=== PATIENT | female | born 1960 | race Caucasian/White ===

== ENCOUNTER 2020-01-31 07:34 | Outpatient (CLI) | payer OTHER, SELFPAY ==
--- NOTE | ~2020-01-31 | MM_ITS ---
EXAMINATION: MM screening roney BI [facility] HISTORY: Screening mammogram TECHNIQUE: Craniocaudal and mediolateral oblique 3-D tomosynthesis images were obtained and synthetic 2-D images were generated. CAD analysis was submitted and interpreted. COMPARISON: Comparison to multiple prior studies sequentially, with oldest reviewed study dated 12/2015. BREAST PARENCHYMAL COMPOSITION: There are scattered areas of fibroglandular density. FINDINGS: There are developing asymmetries in the subareolar location of the left breast. The right b reast is stable without evidence for malignancy. IMPRESSION: 1. Developing left breast asymmetries. 2. Additional mammographic views and possible breast ultrasound are recommended. BI-RADS Category 0: Incomplete: Needs additional imaging evaluation. Reviewed, dictated and finalized at location A. IMPRESSION: 1. Developing left breast asymmetries. 2. Additional mammographic views and possible breast ultrasound are recommended . BI-RADS Category 0: Incomplete: Needs additional imaging evaluation.
== END 2020-01-31 07:35 | disposition home or self-care (01) ==
PROVIDERS: PCP Physician Assistant; Visit Provider Obstetrics & Gynecology
DX: Z12.31 Encounter for screening mammogram for malignant neoplasm of breast (principal); R92.8 Other abnormal and inconclusive findings on diagnostic imaging of breast
CPT/HCPCS: 77063; 77067

== ENCOUNTER 2020-03-19 11:52 | Outpatient (CLI) | payer OTHER, SELFPAY ==
--- NOTE | ~2020-03-19 | MMUS_ITS ---
EXAMINATION: MM diagnostic mammo unilat LT, US breast LT complete HISTORY: Follow-up left breast asymmetry TECHNIQUE: Additional 3-D tomosynthesis images of the left breast were performed and synthetic 2-D im ages were generated. CAD analysis was submitted and interpreted. High resolution left breast ultrasou nd was performed. COMPARISON: Comparison to multiple prior studies sequentially, with oldest reviewed study dated 12/09. BREAST PARENCHYMAL COMPOSITION: The breasts are heterogenously dense, which may obscure small masses FINDINGS: MAMMOGRAPHIC FINDINGS: . There is a circumscribed mass in the upper central aspect of the left breast anteriorly measuring a pproximately 7 mm. No suspicious calcifications or architectural distortion. ULTRASOUND: At 1:00, 3 cm from the nipple, there is a 8 mm cyst. At 10:00, 1 cm from the nipple, there is a 9 mm cyst. No suspicious masses to suggest malignancy. IMPRESSION: 1. No evidence for malignancy in the left breast. Benign findings. 2. Routine yearly screening mammogram and regular clinical breast examination are recommended. BI-RADS Category 2: Benign finding(s). Reviewed, dictated and finalized at location A. IMPRESSION: 1. No evidence for malignancy in the left breast. Benign findings. 2. Routine yearly screening mammogram and regular clinical breast examination a re recommended. BI-RADS Category 2: Benign finding(s).
== END 2020-03-19 11:53 | disposition home or self-care (01) ==
LOC: ANHIMG 11:53
PROVIDERS: PCP Physician Assistant; Visit Provider Obstetrics & Gynecology
DX: N64.59 Other signs and symptoms in breast (principal)
CPT/HCPCS: 76641; 77065

== ENCOUNTER 2020-04-21 06:41 | Outpatient (CLI) | payer OTHER, SELFPAY ==
[2020-04-21 08:05] LABS: Basophils Percent Auto 0.5 % (0.2-1.2); Eosinophils Absolute Auto 0.2 K/mm3 (0-0.3); Eosinophils Percent Auto 2.4 % (0-4.4); Hematocrit 39.9 % (37.0-47.0); Hemoglobin 13.3 g/dL (12.0-15.0); Immature Granulocyte Absolute 0.05 K/mm3 (0.00-0.031); Immature Granulocyte Percent A 0.7 % (0-0.5); Lymphocytes Absolute Auto 2.28 K/mm3 (0.9-3.2); Mean Corpuscular HGB Conc 33.3 g/dl (32-36); Mean Corpuscular Hemoglobin 29.7 pg (26-34); Mean Corpuscular Volume 89.1 fl (80-100); Mean Platelet Volume 10.1 fl (7.4-10.4); Monocytes Absolute Auto 0.5 K/mm3 (0.1-0.6); Monocytes Percent Auto 6.9 % (2.6-8.5); Neutrophils Absolute Auto 4.3 K/mm3 (1.3-6.7); Neutrophils Percent Auto 58.5 % (45.5-73.1); Platelet Count Result 277 k/mm3 (150-375); Red Blood Count 4.48 M/mm3 (4.2-5.4); Red Cell Distribution Width 11.8 % (11.5-14.5); White Blood Count 7.4 K/mm3 (4.5-10.0)
[2020-04-21 08:16] LABS: Add Urine Microscopic? YES; Appearance Urine Clear (Clear); Bilirubin Urine Negative (Negative); Blood Urine 1+ (Negative); Color Urine Yellow (Yellow); Glucose Urine UA Negative (Negative); Ketones Urine Negative (Negative); Leukocyte Esterase Ur Negative LEU/UL (Negative); Mucus Urine Rare /lpf; Nitrate Urine Negative (Negative); Protein Urine Negative (Negative); Specific Grav Ur 1.018 (1.001-1.035); Squamous Epithelial Cell Urine Many /hpf (Few); Urobilinogen Urine Negative mg/dL (<2.0); WBC Urine 0-3 /hpf
[2020-04-21 08:46] LABS: Alanine Aminotransferase 27 U/L (4-35); Albumin Level 4.5 g/dL (3.5-5.1); Alkaline Phosphatase 137 U/L (38-126); Anion Gap 9 mmol/L (8-16); Aspartate Amino Transferase 38 U/L (14-36); Bilirubin,Total 0.2 mg/dL (0.2-1.3); Blood Urea Nitrogen 20 mg/dL (7-17); Calcium 9.5 mg/dL (8.4-10.2); Carbon Dioxide 25 mmol/L (22-30); Chloride 103 mmol/L (98-107); Cholesterol 263 mg/dL (0-200); Estimated Glomerular Filt Rate > 60; Glucose 92 mg/dL (65-105); HDL Direct 67 mg/dL; Sodium 137 mmol/L (137-145); Triglycerides 115 mg/dL (<150)
[2020-04-21 08:56] LABS: LDL Cholesterol Direct 146 mg/dL
[2020-04-21 09:24] LABS: Hemoglobin A1C 5.6 % (<5.7)
[2020-04-21 09:37] LABS: Free T4 Free Thyroxine 0.92 ng/mL (0.78-2.19)
[2020-05-03 14:07] LABS: Reference Lab Test Result Negative
== END 2020-04-21 06:42 | disposition home or self-care (01) ==
LOC: ANHLAB 06:43
PROVIDERS: PCP Physician Assistant; Visit Provider Physician Assistant
DX: Z13.6 Encounter for screening for cardiovascular disorders (principal); Z13.9 Encounter for screening, unspecified; Z00.01 Encounter for general adult medical examination with abnormal findings
CPT/HCPCS: 36415; 80053; 80061; 81001; 83036; 84439; 84443; 85025; 86769

== ENCOUNTER 2020-09-15 13:53 | Emergency (ER) | payer OTHER, SELFPAY ==
--- NOTE | ~2020-09-15 | CT_ITS ---
EXAMINATION: CT abdomen pelvis w con DATE: 09/15/2020 16:54 INDICATION: Right flank pain TECHNIQUE: Computed tomography (CT) of the abdomen and pelvis was performed with 100 mL Omnipaque-350 intravenous contrast. Automated exposure control and iterative reconstruction technique were employe d. The dose-length product was 704.47 mGy-cm. COMPARISON: None FINDINGS: Lung bases are clear. Heart size is normal. No pericardial or pleural effusion. Small sliding-type hi atal hernia with suggestion of mild wall thickening at the gastroesophageal junction which could be r elated to reflux esophagitis. Small region of subtle focal hepatic steatosis at the ligamentum teres. Gallbladder, spleen, pancreas, bilateral adrenal glands and kidneys are normal. No urolithiasis or h ydronephrosis. There is moderate colonic diverticulosis with a sigmoid predominance. There is no adj acent inflammatory change to suggest diverticulitis. There is mild wall thickening along the sigmoid colon significantly decreased since the prior study and with no surrounding comparison to suggest acu te diverticulitis and this may represent mild scarring related to earlier diverticulitis as seen on t he prior study. Small bowel and appendix are normal. Bilateral subcentimeter ovarian cysts/follicles, 2 on the right and one on the left. Tiny amount of likely physiologic fluid at the right adnexa. Rayray dder and uterus are normal. No abscess or free intraperineal gas. No pathologically enlarged abdomina l or pelvic lymphadenopathy. Bones are unremarkable. IMPRESSION: 1. Small sliding-type hiatal hernia with mild wall thickening at the gastroesophageal junction which could be related to reflux. 2. Moderate sigmoid diverticulosis without surrounding inflammatory stranding to suggest acute divert iculitis but with some wall thickening which may be related to chronic scarring related to earlier di verticulitis as seen on the prior study. When 3. Normal gallbladder and appendix. Reviewed, dictated and finalized at location A. MOBILE TECHNICIAN IMPRESSION: 1. Small sliding-type hiatal hernia with mild wall thickening at the gastroesop hageal junction which could be related to reflux. 2. Moderate sigmoid diverticulosis without surrounding inflammatory stranding t o suggest acute diverticulitis but with some wall thickening which may be relat ed to chronic scarring related to earlier diverticulitis as seen on the prior s tudy. When 3. Normal gallbladder and appendix.
[2020-09-15 14:13] VITALS: BP 144/67; PULSE 58; RESP 18; TEMP 36.8; O2SAT 100
--- NOTE | 2020-09-15 14:41 | ED.BACK ---
HPI - Back Pain/Injury General Chief Complaint: Back Pain/Injury Stated Complaint: right flank pain Time Seen by Provider: 09/15/20 14:11 Source: patient Mode of arrival: ambulatory Limitations: no limitations History of Present Illness HPI Narrative: This is a 59-year-old female that presents the emergency department for right flank pain x3 weeks. No known injury or trauma. Reports intermittent sharp right-sided flank pains. Associated with nausea. Denies fever, chest pain, shortness of breath, vomiting, diarrhea, dysuria, hematuria. Related Data Home Medications Medication Instructions Recorded Confirmed estradiol-norethindrone acet 1 tablet PO DAILY 09/15/20 [Activella] fluoxetine mg 09/15/20 fluticasone propionate [Flonase] 1 spray INTRANASAL DAILY 09/15/20 valacyclovir 09/15/20 Allergies Allergy/AdvReac Type Severity Reaction Status Date / Time No Known Allergies Allergy Mild Verified 09/15/20 14:16 Review of Systems Review of Systems: Narrative: CONSTITUTIONAL: Denies fever GASTROINTESTINAL: Reports nausea. Denies abdominal pain, vomiting, or diarrhea. GENITOURINARY: Denies dysuria or hematuria. SKIN: Denies rash MUSCULOSKELETAL: Reports back pain NEUROLOGIC: Denies numbness, or weakness. All systems reviewed & are unremarkable except as noted in HPI and below PMFSH Surgical History Surgical History (Updated 09/15/20 @ 14:45 by Shona Hester PA-C) History of laparoscopy History of tonsillectomy Family History Family History (Updated 06/06/19 @ 09:40 by DOCTOR UNKNOWN) Sibling Family history of malignant neoplasm Father Family history of renal cell carcinoma Hypertension Asthma Family history of kidney disease Mother Family history of arthritis Family history of dementia Family history of Alzheimer's disease Social History Social History Smoking status: Never smoker Alcohol intake: current Gender identity (if verbalized by the patient): Female Exam Narrative: Exam Narrative: GENERAL: Well-appearing, well-nourished, and in no acute distress. HEAD: Normocephalic, atraumatic. EYES: EOMI. CHEST: Clear to auscultation. No respiratory distress. No wheezes rales or rhonchi HEART: Regular rate and rhythm. No murmur heard. Normal peripheral pulses. ABDOMEN: Soft, nontender, nondistended, normal active bowel sounds. No CVA tenderness BACK: No midline spinal tenderness EXTREMITIES: Normal range of motion. No edema. SKIN: Warm, dry, no rash. NEURO: No focal deficits. Alert and oriented x3. PSYCH: Normal mood and affect Course Vital Signs Vital signs: Vital Signs Temperature 98.2 F 09/15/20 14:13 Pulse Rate 58 L 09/15/20 14:13 Respiratory Rate 18 09/15/20 14:13 Blood Pressure 144/67 H 09/15/20 14:13 Pulse Oximetry 100 09/15/20 14:13 Temperature 98.2 F 09/15/20 14:13 Pulse Rate 58 L 09/15/20 14:13 Respiratory Rate 18 09/15/20 14:13 Blood Pressure 144/67 H 09/15/20 14:13 Pulse Oximetry 100 09/15/20 14:13 MDM - Back Pain/Injury MDM Narrative Medical decision making narrative: Patient presents to the emergency department for right-sided flank pain intermittent over the last couple of weeks. She is afebrile and nontoxic-appearing. CBC is without leukocytosis. Metabolic panel without concerning findings. Urine is normal. Bedside test is negative. CT scan abdomen and pelvis shows a small hiatal hernia and likely reflux. Also shows sigmoid diverticulosis, without evidence of diverticulitis. No acute findings. Patient was updated on case findings. She is stable and felt appropriate for further outpatient evaluation. She was given warnings to return to the ER Lab Data Attestation: I reviewed the patient's lab results. Result diagrams: 09/15/20 15:42 09/15/20 15:42 Labs: Lab Results 09/15/20 09/15/20 09/15/20 Range/Units 14:38 15:42 15:42 WBC 6.8 (4.5-10.0) K/mm3 RBC
[2020-09-15 14:47] LABS: Add Urine Microscopic? NO; Appearance Urine Clear (Clear); Bilirubin Urine Negative (Negative); Blood Urine Negative (Negative); Color Urine Colorless (Yellow); Glucose Urine UA Negative (Negative); Ketones Urine Negative (Negative); Leukocyte Esterase Ur Negative LEU/UL (Negative); Nitrate Urine Negative (Negative); Protein Urine Negative (Negative); Specific Grav Ur 1.006 (1.001-1.035); Urobilinogen Urine Negative mg/dL (<2.0)
[2020-09-15 15:50] LABS: Basophils Percent Auto 0.6 % (0.2-1.2); Eosinophils Absolute Auto 0.1 K/mm3 (0-0.3); Eosinophils Percent Auto 1.9 % (0-4.4); Hematocrit 37.6 % (37.0-47.0); Hemoglobin 12.9 g/dL (12.0-15.0); Immature Granulocyte Absolute 0.02 K/mm3 (0.00-0.031); Immature Granulocyte Percent A 0.3 % (0-0.5); Lymphocytes Absolute Auto 1.84 K/mm3 (0.9-3.2); Lymphocytes Percent Auto 27.3 % (18.3-44.2); Mean Corpuscular HGB Conc 34.3 g/dl (32-36); Mean Corpuscular Hemoglobin 31.2 pg (26-34); Mean Platelet Volume 9.6 fl (7.4-10.4); Monocytes Absolute Auto 0.5 K/mm3 (0.1-0.6); Monocytes Percent Auto 6.7 % (2.6-8.5); Neutrophils Absolute Auto 4.3 K/mm3 (1.3-6.7); Neutrophils Percent Auto 63.2 % (45.5-73.1); Platelet Count Result 315 k/mm3 (150-375); Red Blood Count 4.13 M/mm3 (4.2-5.4); Red Cell Distribution Width 11.7 % (11.5-14.5); White Blood Count 6.8 K/mm3 (4.5-10.0)
[2020-09-15] MEDS: MORPHINE SULFATE (*CRX) 4 MG/ML INJ IV PUSH (15:51)
[2020-09-15] MEDS: ONDANSETRON INJ 4 MG/2 ML VIAL IV PUSH (15:51)
[2020-09-15] MEDS: SODIUM CHLORIDE 0.9% IV 1,000 ML 999 ML IV CONT (15:51)
[2020-09-15 16:01] LABS: Anion Gap 5 mmol/L (8-16); Blood Urea Nitrogen 17 mg/dL (7-17); Carbon Dioxide 28 mmol/L (22-30); Chloride 106 mmol/L (98-107); Estimated CRCL calculation 70 ml/min; Estimated Glomerular Filt Rate > 60; Glucose 95 mg/dL (65-105); Potassium 4.1 mmol/L (3.4-5.0); Sodium 139 mmol/L (137-145)
[2020-09-15 17:57] VITALS: BP 138/88; PULSE 80; RESP 20; O2SAT 99
== END 2020-09-15 17:58 | disposition home or self-care (01) ==
PROVIDERS: Physician Assistant; Emergency Provider Emergency Medicine; PCP Physician Assistant
DX: R10.9 Unspecified abdominal pain (principal); K44.9 Diaphragmatic hernia without obstruction or gangrene; K57.30 Diverticulosis of large intestine without perforation or abscess without bleeding
CPT/HCPCS: 36415; 74177; 80048; 81003; 81025; 85025; 96374; 96375; 99284; J0131; J2270; J2405; J7030; Q9967

== ENCOUNTER 2021-03-21 07:50 | Outpatient (CLI) | payer OTHER, SELFPAY ==
--- NOTE | ~2021-03-21 | MM_ITS ---
EXAMINATION: MM screening roney BI [facility] HISTORY: Screening TECHNIQUE: Craniocaudal and mediolateral oblique 3-D tomosynthesis images were obtained and synthetic 2-D images were generated. CAD analysis was submitted and interpreted. COMPARISON: Comparison to multiple prior studies sequentially, with oldest reviewed study dated 06/02. BREAST PARENCHYMAL COMPOSITION: The breasts are heterogeneously dense, which may obscure small masses . FINDINGS: There are developing bilateral breast asymmetries medial aspect of both breasts. There are no suspicious calcifications. IMPRESSION: 1. Developing bilateral breast asymmetries. 2. Additional mammographic views and possible breast ultrasound are recommended. BI-RADS Category 0: Incomplete: Needs additional imaging evaluation. Reviewed, dictated and finalized at location A. IMPRESSION: 1. Developing bilateral breast asymmetries. 2. Additional mammographic views and possible breast ultrasound are recommended . BI-RADS Category 0: Incomplete: Needs additional imaging evaluation.
== END 2021-03-21 07:51 | disposition home or self-care (01) ==
LOC: ANHIMG 07:51
PROVIDERS: PCP Physician Assistant; Visit Provider Obstetrics & Gynecology
DX: Z12.31 Encounter for screening mammogram for malignant neoplasm of breast (principal); R92.8 Other abnormal and inconclusive findings on diagnostic imaging of breast
CPT/HCPCS: 77063; 77067

== ENCOUNTER 2022-12-18 07:18 | Outpatient (CLI) | payer OTHER, SELFPAY ==
--- NOTE | ~2022-12-18 | CT_ITS ---
Clinical Indication: Pulmonary nodule CT Scan of the Chest with Contrast: Technique: Contiguous sections were acquired throughout the chest after intravenous administration of 75 cc of Omnipaque 350. Dose reduction technique was used on this scan by utilizing automated exposu re control and iterative reconstruction technique. The dose-length product (DLP) was 273.49 mGy-cm. Findings: There is no evidence of any significant mediastinal, hilar or axillary lymphadenopathy. No large cent ral pulmonary embolus seen. There is no evidence of aortic dissection or aneurysm. Aberrant right sub clavian artery noted. There is no evidence of pleural or pericardial effusion. The lungs are clear. No pulmonary nodules or infiltrates are noted. Images through the upper abdomen reveal no abnormalities. Impression: Clear lungs. Reviewed, dictated and finalized at location . Impression: Clear lungs.
[2022-12-18 07:49] LABS: Estimated Glomerular Filt Rate > 60
== END 2022-12-18 07:19 | disposition home or self-care (01) ==
PROVIDERS: PCP Physician Assistant; Visit Provider Physician Assistant
DX: R91.1 Solitary pulmonary nodule (principal)
CPT/HCPCS: 71260; Q9967